=== PATIENT | male | born 1965 | race Caucasian/White ===

== ENCOUNTER 2020-06-11 11:04 | Emergency (ER) | payer MEDICAID ==
[~2020-06-11] VITALS: Ht 177.8 cm; Wt 99.0 kg
[2020-06-11] MEDS ORDERED: SODIUM CHLORIDE 0.9% 1,000 ML IV ONE (11:23)
[2020-06-11] MEDS ORDERED: METOPROLOL TARTRATE 50MG TABLET PO ONE (11:30)
[2020-06-11] MEDS ORDERED: TETANUS, DIPHTHERIA, PERTUSSIS VAC/PF 0.5ML (>7YR OLD) IM ONE (11:30)
[2020-06-11 11:49] LABS: BASOPHILS % 0.6 % (0.0-2.0); EOSINOPHILS % 3.9 % (0.0-5.0); HEMATOCRIT. 46.4 % (42.0-52.0); HEMOGLOBIN. 15.5 g/dL (14.0-18.0); LYMPHOCYTES % 18.7 % (20.0-50.0); MEAN CORPUSCULAR HEMOGLOBIN 29.9 pg (28.0-32.0); MEAN CORPUSCULAR VOLUME 89.5 fL (80.0-94.0); MEAN PLATELET VOLUME 8.8 fl (7.4-10.4); MONOCYTES % 7.9 % (2.0-8.0); NEUTROPHILS % 68.9 % (40.0-76.0); PLATELET 204 x1000/uL (130-400); RED BLOOD CELL COUNT 5.19 mill/uL (4.7-6.1); RED CELL DISTRIBUTION WIDTH 16.6 % (11.6-14.6)
[2020-06-11 11:56] LABS: CHLORIDE 109 mEq/L (98-107)
[2020-06-11 12:00] LABS: ETHANOL BLOOD < 10 mg/dL
[2020-06-11] MEDS ORDERED: LIDOCAINE HCL/EPINEPHRINE 1%-EPI 1:100,000 30 ML VIAL INFIL ONE (12:15)
[2020-06-11] MEDS ORDERED: LIDOCAINE 1%/EPI 1:100,000 10 ML VIAL IJ NR (12:15)
[2020-06-11 14:11] LABS: CLARITY URINE CLEAR (CLEAR); COLOR URINE YELLOW (YELLOW); KETONES URINE NEGATIVE (NEGATIVE); LEUKOCYTE ESTERASE URINE NEGATIVE (NEGATIVE); NITRITE URINE NEGATIVE (NEGATIVE); OCCULT BLOOD URINE NEGATIVE (NEGATIVE); PH URINE 7.5 (4.5-8.0); PROTEIN URINE NEGATIVE (NEGATIVE); SPECIFIC GRAVITY URINE 1.022 (1.005-1.030)
[2020-06-11 14:25] LABS: METHADONE URINE SCREEN NEGATIVE (NEGATIVE); OPIATES URINE SCREEN NEGATIVE (NEGATIVE)
[2020-06-11 14:26] LABS: *AMPHETAMINES SCREEN URINE PRESUMTIVE POSITIVE (NEGATIVE); *BARBITURATES SCREEN URINE NEGATIVE (NEGATIVE); CANNABINOID URINE SCREEN PRESUMTIVE POSITIVE (NEGATIVE); PHENCYCLIDINE URINE SCREEN NEGATIVE (NEGATIVE)
[2020-06-11 14:27] LABS: *BENZODIAZEPINES SCREEN URINE NEGATIVE (NEGATIVE)
[2020-06-11 14:28] LABS: *COCAINE SCREEN URINE NEGATIVE (NEGATIVE)
[2020-06-11] MEDS ORDERED: HALOPERIDOL LACTATE 5MG/ML VIAL IM ONE (17:45)
[2020-06-11] MEDS ORDERED: DIPHENHYDRAMINE 50MG/ML VIAL IM ONE (17:45)
[2020-06-11] MEDS ORDERED: LORAZEPAM 2MG/ML CPJ IM PRN (17:45)
[2020-06-11] MEDS ORDERED: LORAZEPAM 1MG TABLET PO ONE ×2 (18:00→20:45)
[2020-06-11] MEDS ORDERED: ACETAMINOPHEN 325MG TABLET PO ONE (20:45)
[2020-06-11] MEDS ORDERED: OLANZAPINE 10 MG/VIAL IM ONE (21:30)
[2020-06-11] MEDS: LORAZEPAM 2MG/ML CPJ IM ONE ×2 (21:31→21:46)
[2020-06-11] MEDS ORDERED: OLANZAPINE 5MG TABLET ODT PO ONE (21:45)
[2020-06-11] MEDS ORDERED: HYDROCODONE/ACETAMINOPHEN 5/325MG TABLET PO ONE (21:45)
[2020-06-12] MEDS: LORAZEPAM 1MG TABLET PO SCH ×3 (09:03→21:33)
[2020-06-12] MEDS: ARIPIPRAZOLE 5MG TABLET PO SCH ×3 (09:03→21:34)
[2020-06-12] MEDS ORDERED: QUETIAPINE FUMARATE 50MG TABLET PO SCH (21:00)
[2020-06-13 09:06] LABS: LIDOCAINE None Detected ug/mL (1.5-5.0)
[2020-06-13] MEDS: ARIPIPRAZOLE 5MG TABLET PO SCH (17:34)
[2020-06-13] MEDS: LORAZEPAM 1MG TABLET PO SCH (17:35)
[2020-06-13 19:59] VITALS: BP 113/71
== END 2020-06-13 20:01 ==
LOC: ER 11:04
DX: S51.811A Laceration without foreign body of right forearm, initial encounter (principal); Z20.828 Contact with and (suspected) exposure to other viral communicable diseases; R45.851 Suicidal ideations; I10 Essential (primary) hypertension; F17.200 Nicotine dependence, unspecified, uncomplicated; X83.8XXA Intentional self-harm by other specified means, initial encounter; Y93.89 Activity, other specified; Y92.89 Other specified places as the place of occurrence of the external cause; Y99.8 Other external cause status
CPT/HCPCS: 12004; 36415; 71045; 80053; 80176; 80305; 80307; 80320; 80329; 81003; 85025; 87635; 90471; 90715; 93005; 96372; 99285; J1200; J1630; J2060; J3490; J7030; Z7610; G0480